=== PATIENT | female | born 1990 ===

== ENCOUNTER 2017-09-13 11:58 | Observation (INO) | payer OTHER ==
--- NOTE | 2017-09-13 12:15 | ED PDOC ---
HPI:STROKE - Time Time: : - Historian Historian: Patient - Chief Complaint Chief Complaint: Numbness - Onset Date: 09/13/17 Time: 11:30 Onset: Hours (1) - Timing Timing: Improved - Context Context: Walking - Location Locate left: Lower extremity - Severity of pain Maximum severity:: Mild Pain Scale:: 0 Severity Current: Mild Pain Scale:: 0 - Associated Symptoms Associated symptoms:: Headache, other (Hearing decreased right ear) - Relieved by Relieved by:: Nothing - TPA Positive for Contraindication: Yes Reason tPA is not being Administered: Sxs resolving NIHSS Stroke Scale - Date/Time Evaluation Performed When Was NIHSS Performed: Baseline - How Severe is the Stroke Level of Consciousness: 0=Alert LOC to Questions: 0=Both comments correct LOC to commands: 0=Obeys both correctly Best Gaze: 0=Normal Visual: 0=No visual loss Facial: 0=Normal Motor Arm - Left: 0=No drift Motor Arm - Right: 0=No drift Motor Leg - Left: 0=No drift Motor Leg - Right: 0=No drift Limb Ataxia: 0=Absent Sensory: 1=Mild to moderate loss Best Language: 0=No aphasia Dysarthia: 0=Normal articulation Extinction & Inattention (Neglect): 0=Normal, no object Score: 1 rTPA Inclusion/Exclusion - Refusal of Treatment Patient Refused Treatment: No - Inclusion Criteria for Altepase Patient is 18 years or Older: Yes The Clinical Diagnosis of Ischemic Stroke That is Causing a Potentially Disabling Neurological Deficit: No Time of Onset is Well Established to be Less Than 270 Minute Before Treatment Would Begin: Yes Risk/Benefit Discussed With Patient/Family Member Present: No Past Medical History Vital Signs: Last Vital Signs Temp 98.9 F 09/13/17 12:07 Pulse 115 H 09/13/17 12:07 Resp 18 09/13/17 12:07 BP 123/82 09/13/17 12:07 Pulse Ox 100 09/13/17 12:07 - Medical History PMH: No Chronic Diseases - Family History Family History: States: Unknown Family Hx - Home Medications Home Medications: Ambulatory Orders Medication Instructions Recorded Multivitamin [Multivitamins] 1 tab PO DAILY 09/13/17 - Allergies Allergies/Adverse Reactions: Allergies Allergy/AdvReac Type Severity Reaction Status Date / Time No Known Allergies Allergy Verified 09/13/17 12:09 Review of Systems ROS Statement: Except As Marked, All Systems Reviewed And Found Negative Neurological: Positive for: Numbness Physical Exam - Reviewed Nursing Documentation Reviewed: Yes Vital Signs Reviewed: Yes - Physical Exam Appears: Positive for: Non-toxic, No Acute Distress Head Exam: Positive for: ATRAUMATIC, NORMAL INSPECTION, NORMOCEPHALIC Skin: Positive for: Normal Color, Warm, DRY Eye Exam: Positive for: EOMI, Normal appearance, PERRL ENT: Positive for: Normal ENT Inspection Neck: Positive for: Normal, Painless ROM Cardiovascular/Chest: Positive for: Regular Rate, Rhythm Respiratory: Positive for: CNT, Normal Breath Sounds Gastrointestinal/Abdominal: Positive for: Normal Exam, Soft Back: Positive for: Normal Inspection Extremity: Positive for: Normal ROM Neurologic/Psych: Positive for: Alert, Oriented, Motor/Sensory Deficits (Mild decrease sensation left upper and lower ext) - Laboratory Results Result Diagrams: 09/13/17 12:20 09/13/17 12:20 - ECG O2 Sat by Pulse Oximetry: 100 (RA) Pulse Ox Interpretation: Normal Medical Decision Making Medical Decision Making: Time: 1211 Plan: -- Type and Screen -- Head CT w/o contrast (CODE STROKE) -- EKG -- CMP -- Hemoglobin -- Lipid Panel -- Troponin -- Stroke Team Consult -- CBC with differentials -- PTT -- Prothrombin Time -- Chest Portable XR -- Glucose, POC -- Sodium Chloride IV 1000 mls/hr Time: [address] w.o contrast Results FINDINGS: HEMORRHAGE: No intracranial hemorrhage. BRAIN: No mass effect or edema. No atrophy or chronic microvascular ischemic changes. VENTRICLES: Unremarkable. No hydrocephalus. CALVARIUM: Unremarkable. PARANASAL SINUSES: Unremarkable as visualized. No significant inflammatory changes. MASTOID AIR CELLS: Unremarkable as visualized. No inflammatory changes. OTHER FINDINGS: None. IMPRESSION: Normal CT of the Head. No intracranial mass, hemorrhage or evidence of acute infarct. These findings were discussed by telephone with Dr. Hinojosa at 12:23 p.m. on 09/13. Scribe Attestation: Documented by Herman Adames, acting as a scribe for Dr. Jann Hinojosa. Provider Scribe Attestation: All medical record entries made by the Scribe were at my direction and personally dictated by me. I have reviewed the chart and agree that the record accurately reflects my personal performance of the history, physical exam, medical decision making, and the department course for this patient. I have also personally directed, reviewed, and agree with the discharge instructions and disposition. Disposition - Clinical Impression Clinical Impression: TIA (transient ischemic attack) - Patient ED Disposition Is Patient to be Admitted: Yes - Disposition Disposition Time: 14:12 Condition: FAIR Forms: Atonarp (Polish) - Pt Status Changed To: Hospital Disposition Of: Observation - POA Present On Arrival: None
--- NOTE | 2017-09-13 12:24 | CT ---
PROCEDURE: CT HEAD WITHOUT CONTRAST. HISTORY: code stroke COMPARISON: None available. TECHNIQUE: Axial computed tomography images were obtained through the head/brain without intravenous contrast. Radiation dose: Total exam DLP = 744.74 mGy-cm. This CT exam was performed using one or more of the following dose reduction techniques: Automated exposure control, adjustment of the mA and/or kV according to patient size, and/or use of iterative reconstruction technique. FINDINGS: HEMORRHAGE: No intracranial hemorrhage. BRAIN: No mass effect or edema. No atrophy or chronic microvascular ischemic changes. VENTRICLES: Unremarkable. No hydrocephalus. CALVARIUM: Unremarkable. PARANASAL SINUSES: Unremarkable as visualized. No significant inflammatory changes. MASTOID AIR CELLS: Unremarkable as visualized. No inflammatory changes. OTHER FINDINGS: None. IMPRESSION: Normal CT of the Head. No intracranial mass, hemorrhage or evidence of acute infarct. These findings were discussed by telephone with Dr. Hinojosa at 12:23 p.m. on 09/13/2017.
[2017-09-13] MEDS: Sodium Chloride 0.9% 1,000 ML IV SCH (12:26)
[2017-09-13 12:27] LABS: BASO % 0.2 % (0.0-2.0); HEMOGLOBIN 10.2 g/dL (12.0-16.0); LYMPH % 7.6 % (20.0-40.0); MEAN CELL VOLUME 75.9 fl (81.0-99.0); MEAN CORPUSCULAR HEMOGLOBIN 23.5 pg (27.0-31.0); MEAN PLATELET VOLUME 8.7 fl (7.2-11.7); MONO # 0.6 K/uL (0.0-0.8); NEUT % 87.2 % (50.0-75.0); PLATELET COUNT 284 K/uL (130-400); RBC 4.34 Mil/uL (3.80-5.20); RED CELL DISTRIBUTION WIDTH 18.9 % (11.5-14.5); WHITE BLOOD COUNT 12.6 K/uL (4.8-10.8)
[2017-09-13 12:37] LABS: ALB/GLOB RATIO 1.1 (1.0-2.1); ALBUMIN 4.3 g/dL (3.5-5.0); ALT/SGPT 33 U/L (9-52); AST/SGOT 30 U/L (14-36); BLOOD UREA NITROGEN 12 mg/dl (7-17); GFR AFRICAN-AMERICAN > 60; GFR NON-AFRICAN AMERICAN > 60; HDL CHOLESTEROL 47 MG/DL (30-70)
[2017-09-13 12:48] LABS: LDL CHOLESTEROL 93 mg/dL (0-129)
[2017-09-13 12:59] LABS: INR 1.2 (0.9-1.2); PARTIAL THROMBOPLASTIN TIME 33.5 Seconds (25.6-37.1); PROTHROMBIN TIME 13.7 Seconds (9.8-13.1)
--- NOTE | 2017-09-13 13:08 | CP.PCM.CON ---
History of Present Illness - History of Present Illness History of Present Illness: Ms. Mena is a 26-year-old woman with no significant past medical history, who states that last night, she had a fever and felt ill. This morning, she woke up feeling okay, but around 11:45 AM, or so, she developed strange sensation of numbness/tingling that started to go up her left leg, traveled up her left side of the body, then crossed over to her right arm. She ordered an Uber to go to the doctor, but then noticed that her face started to feel numb and felt that she had decreased hearing loss. As a result, she presented to the ED. She was initially evaluated in the ED and was found to have no objective findings. She continued to complain of left arm/leg numbness and right face numbness. CT scan of the head was normal. Vital signs were completely normal. NIHSS was 1. She was not a good candidate for IV tPA due to minimal symptoms that were inconsistent with a stroke distribution. Review of Systems - Review of Systems All systems: reviewed and no additional remarkable complaints except Past Patient History - Past Social History Smoking Status: Never Smoked - HEENT Other/Comment: TMJ - PSYCHIATRIC Hx Substance Use: No - SURGICAL HISTORY Hx Surgeries: Yes Hx Section: Yes Meds Allergies/Adverse Reactions: Allergies Allergy/AdvReac Type Severity Reaction Status Date / Time No Known Allergies Allergy Verified 09/13/17 12:09 - Medications Medications: Current Medications Sodium Chloride (Sodium Chloride 0.9%) 1,000 mls @ 100 mls/hr IV .Q10H KATIE Last Admin: 09/13/17 12:26 Dose: 100 mls/hr Physical Exam - Constitutional Appears: Well - Head Exam Head Exam: ATRAUMATIC, NORMAL INSPECTION, NORMOCEPHALIC - Eye Exam Eye Exam: EOMI, Normal appearance, PERRL - ENT Exam ENT Exam: Mucous Membranes Moist, Normal Exam - Respiratory Exam Respiratory Exam: Clear to Auscultation Bilateral, NORMAL BREATHING PATTERN - Cardiovascular Exam Cardiovascular Exam: REGULAR RHYTHM - GI/Abdominal Exam GI & Abdominal Exam: Normal Bowel Sounds, Soft. absent: Tenderness - Neurological Exam Neurological exam: Alert, CN II-XII Intact, Normal Gait, Oriented x3, Reflexes Normal Additional comments: Sensation relatively less on the left than the right arm and leg. Sensation relatively less on the right face as compared to the left side. Otherwise, no other focal neurological deficits. Speech is clear, not dysarthric, not aphasic. Strength and fine motor movements are normal. There was no pronator drift. NIHSS is 1 Results - Vital Signs Recent Vital Signs: Last Vital Signs Temp 98.9 F 09/13/17 12:07 Pulse 98 H 09/13/17 12:25 Resp 16 09/13/17 12:25 BP 110/72 09/13/17 12:25 Pulse Ox 100 09/13/17 12:25 - Labs Result Diagrams: 09/13/17 12:20 09/13/17 12:20 Labs: Laboratory Results - last 24 hr 09/13/17 09/13/17 09/13/17 12:07 12:20 12:20 WBC 12.6 H RBC 4.34 Hgb 10.2 L Hct 33.0 L MCV 75.9 L MCH 23.5 L MCHC 31.0 L RDW 18.9 H Plt Count 284 MPV 8.7 Neut % (Auto) 87.2 H Lymph % (Auto) 7.6 L [place] % (Auto) 5.0 Eos % (Auto) 0.0 Baso % (Auto) 0.2 Neut # (Auto) 11.0 H Lymph # (Auto) 1.0 [place] # (Auto) 0.6 Eos # (Auto) 0.0 Baso # (Auto) 0.0 PT INR APTT Sodium 142 Potassium 3.3 L Chloride 105 Carbon Dioxide 18 L Anion Gap 22 H BUN 12 Creatinine 0.6 L Est GFR ( Amer) > 60 Est GFR (Non-Af Amer) > 60 POC Glucose (mg/dL) 124 H Random Glucose 130 H Calcium 9.0 Total Bilirubin 0.6 AST 30 ALT 33 Alkaline Phosphatase 83 Troponin I < 0.0120 Total Protein 8.2 Albumin 4.3 Globulin 3.8 Albumin/Globulin Ratio 1.1 Triglycerides 71 Cholesterol 163 LDL Cholesterol Direct 93 HDL Cholesterol 47 BBK History Checked 09/13/17 09/13/17 12:20 12:20 WBC RBC Hgb Hct MCV MCH MCHC RDW Plt Count MPV Neut % (Auto) Lymph % (Auto) [place] % (Auto) Eos % (Auto) Baso % (Auto) Neut # (Auto) Lymph # (Auto) [place] # (Auto) Eos # (Auto) Baso # (Auto) PT 13.7 H INR 1.2 APTT 33.5 Sodium Potassium Chloride Carbon Dioxide Anion Gap BUN Creatinine Est GFR ( Amer) Est GFR (Non-Af Amer) POC Glucose (mg/dL) Random Glucose Calcium Total Bilirubin AST ALT Alkaline Phosphatase Troponin I Total Protein Albumin Globulin Albumin/Globulin Ratio Triglycerides Cholesterol LDL Cholesterol Direct HDL Cholesterol BBK History Checked No verified bt Assessment & Plan (1) Complicated migraine Assessment and Plan: The symptoms are inconsistent in description with any stroke syndrome. However , there is a slim chance that the patient is having a stroke. I recommend the followin. Telemetry 2. MRI brain without contrast, MRA head/neck without contrast 3. Give aspirin 81 mg now, as well as decadron 10 mg IV and magnesium sulfate 2 grams IV once. Check test and give 500 mg of depakote as well if not 4. Echocardiogram 5. PT/OT eval 6. DVT Px 7. Case management consult 8. Check HbA1c, lipid panel, B12, folate, vitamin D levels 9. Urine toxicology Thank you. Status: Acute
[2017-09-13 13:14] LABS: ANISOCYTOSIS SLIGHT; BANDS 3 % (0-2); BASOPHIL 1 % (0-2); HYPOCHROMIC SLIGHT; LYMPHOCYTE 7 % (20-50); MONOCYTE 5 % (0-10); NEUTROPHIL 82 % (42-75); PLATELET ESTIMATE NORMAL (NORMAL); REACTIVE LYMPHOCYTES 2 % (0-0); TOTAL CELLS COUNTED 100
[2017-09-13 13:15] LABS: SPHEROCYTES SLIGHT; STOMATOCYTES SLIGHT
[2017-09-13 13:16] LABS: MICROCYTOSIS SLIGHT; POIKILOCYTOSIS SLIGHT
[2017-09-13] MEDS ORDERED: Potassium Chloride 20 mEq ER Tab PO ONE ×2 (13:27→13:34)
[2017-09-13] MEDS ORDERED: Magnesium Sulfate 2 gm/50 ml 2 GM/50 ML BAG IVPB STA (13:31)
[2017-09-13] MEDS ORDERED: Dexamethasone 10 MG in Sodium Chloride 0.9% 50 ML IVPB STA (13:31)
[2017-09-13] MEDS ORDERED: Divalproex 500 mg DR(BID formulation) PO STA (13:33)
[2017-09-13] MEDS ORDERED: Magnesium Sulfate 2 gm/50 ml 2 GM/50 ML BAG ONE (13:36)
--- NOTE | 2017-09-13 14:26 | CP.PCM.HP ---
History of Present Illness - History of Present Illness History of Present Illness: 26 y/o female with no PMH presented to ER complaining of bilateral leg and arm numbness and tingling . As per patient yesterday she had a busy day and in the evening was feeling tired , had sore throat ,felt shiverish and had a temperature. This morning again she did not feel well, had some left foot and ankle numbness like a charley horse , so decided to take 3 tablets of exedrin at her boyfriends advice. After she took exedrin felt somewhat better but later she felt this numbness to travel from her left ankle to all her left leg and left arm . She decied to look up her symptoms in the internet if she needed to come to hospital and that is when her numbness jumped to her right leg and right arm as well, right side of her face and chest. She came to ER where code stroke was called . CT head showed no acute pathology . Neurology eval was called . Her initial NIHSS score was 1. Given that her symptoms were not really related to stroke she was not considered to be a good candidate for tPA. patient to be placed under observation in telemetry for further evaluation and treatment. at present she feels much better , has minimal numbness to the palm of her left hand and left ankle and foot She denies any chest pain ,SOB , palpitations, PND, orthopnea, urinary symptoms or changes in bowel movements. Allergies; NKDA PMH: None Medications took 2 tablets of Exedrin this Am @ 7 Am, takes MVI Surgery : c- section , temporo-mandibular joint surgery Family history :grandmother had DM, mother has hypothyroidism Social history ; Lives with mother and her 3 year old son in [place], stay at home mom, does not smoke,does not drink and does not use any drugs, single Code status ; Full Next of kin ; mother ROS ; 10 point review of system negative except above Present on Admission - Present on Admission Any Indicators Present on Admission: No Review of Systems - Review of Systems All systems: reviewed and no additional remarkable complaints except Past Patient History - Infectious Disease Hx of Infectious Diseases: None - Tetanus Immunizations Tetanus Immunization: Unknown - Past Medical History & Family History Past Medical History?: No Past Family History: Reviewed and not pertinent - Past Social History Smoking Status: Never Smoked Chewing Tobacco Use: No Cigar Use: No Alcohol: None Drugs: Denies Home Situation {Lives}: With Family - CARDIAC Hx Cardiac Disorders: No - PULMONARY Hx Respiratory Disorders: No - NEUROLOGICAL Hx Neurological Disorder: No - HEENT Hx HEENT Problems: No Other/Comment: TMJ - RENAL Hx Chronic Kidney Disease: No - ENDOCRINE/METABOLIC Hx Endocrine Disorders: No - HEMATOLOGICAL/ONCOLOGICAL Hx Blood Disorders: No - INTEGUMENTARY Hx Dermatological Problems: No - MUSCULOSKELETAL/RHEUMATOLOGICAL Hx Musculoskeletal Disorders: No - GASTROINTESTINAL Hx Gastrointestinal Disorders: No - GENITOURINARY/GYNECOLOGICAL Hx Genitourinary Disorders: No - PSYCHIATRIC Hx Psychophysiologic Disorder: No Hx Substance Use: No - SURGICAL HISTORY Hx Surgeries: Yes Hx Section: Yes - ANESTHESIA Hx Anesthesia: Yes Hx Anesthesia Reactions: No Meds Allergies/Adverse Reactions: Allergies Allergy/AdvReac Type Severity Reaction Status Date / Time No Known Allergies Allergy Verified 09/13/17 12:09 Physical Exam - Constitutional Appears: Non-toxic, No Acute Distress - Head Exam Head Exam: ATRAUMATIC, NORMAL INSPECTION, NORMOCEPHALIC - Eye Exam Eye Exam: EOMI, Normal appearance, PERRL Pupil Exam: NORMAL ACCOMODATION - ENT Exam ENT Exam: Mucous Membranes Moist, Normal Exam - Neck Exam Neck exam: Positive for: Full Rom, Normal Inspection - Respiratory Exam Respiratory Exam: Clear to Auscultation Bilateral, NORMAL BREATHING PATTERN. absent: Rales, Rhonchi, Wheezes - Cardiovascular Exam Cardiovascular Exam: REGULAR RHYTHM, RRR, +S1, +S2. absent: JVD - GI/Abdominal Exam GI & Abdominal Exam: Normal Bowel Sounds, Soft. absent: Distended, Guarding, Rebound, Tenderness - Rectal Exam Rectal Exam: Deferred - Extremities Exam Extremities exam: Positive for: normal capillary refill, normal inspection, pedal pulses present. Negative for: calf tenderness, pedal edema - Back Exam Back exam: NORMAL INSPECTION - Neurological Exam Neurological exam: Alert, CN II-XII Intact, Oriented x3, Reflexes Normal - Psychiatric Exam Psychiatric exam: Normal Affect, Normal Mood - Skin Skin Exam: Dry, Intact, Normal Color, Warm Results - Vital Signs Recent Vital Signs: Last Vital Signs Temp 98.9 F 09/13/17 12:07 Pulse 98 H 09/13/17 12:25 Resp 16 09/13/17 12:25 BP 110/72 09/13/17 12:25 Pulse Ox 100 09/13/17 14:13 - Labs Result Diagrams: 09/13/17 12:20 09/13/17 12:20 Labs: Laboratory Results - last 24 hr 09/13/17 09/13/17 09/13/17 12:07 12:20 12:20 WBC 12.6 H RBC 4.34 Hgb 10.2 L Hct 33.0 L MCV 75.9 L MCH 23.5 L MCHC 31.0 L RDW 18.9 H Plt Count 284 MPV 8.7 Neut % (Auto) 87.2 H Lymph % (Auto) 7.6 L [place] % (Auto) 5.0 Eos % (Auto) 0.0 Baso % (Auto) 0.2 Neut # (Auto) 11.0 H Lymph # (Auto) 1.0 [place] # (Auto) 0.6 Eos # (Auto) 0.0 Baso # (Auto) 0.0 Neutrophils % (Manual) 82 H Band Neutrophils % 3 H Lymphocytes % (Manual) 7 L Reactive Lymphs % 2 H Monocytes % (Manual) 5 Basophils % (Manual) 1 Platelet Estimate Normal Hypochromasia (manual) Slight Poikilocytosis (manual Slight Anisocytosis (manual) Slight Microcytosis (manual) Slight Spherocytes Slight Stomatocytes Slight PT INR APTT Sodium 142 Potassium 3.3 L Chloride 105 Carbon Dioxide 18 L Anion Gap 22 H BUN 12 Creatinine 0.6 L Est GFR ( Amer) > 60 Est GFR (Non-Af Amer) > 60 POC Glucose (mg/dL) 124 H Random Glucose 130 H Calcium 9.0 Total Bilirubin 0.6 AST 30 ALT 33 Alkaline Phosphatase 83 Troponin I < 0.0120 Total Protein 8.2 Albumin 4.3 Globulin 3.8 Albumin/Globulin Ratio 1.1 Triglycerides 71 Cholesterol 163 LDL Cholesterol Direct 93 HDL Cholesterol 47 Blood Type Antibody Screen BBK History Checked 09/13/17 09/13/17 12:20 12:20 WBC RBC Hgb Hct MCV MCH MCHC RDW Plt Count MPV Neut % (Auto) Lymph % (Auto) [place] % (Auto) Eos % (Auto) Baso % (Auto) Neut # (Auto) Lymph # (Auto) [place] # (Auto) Eos # (Auto) Baso # (Auto) Neutrophils % (Manual) Band Neutrophils % Lymphocytes % (Manual) Reactive Lymphs % Monocytes % (Manual) Basophils % (Manual) Platelet Estimate Hypochromasia (manual) Poikilocytosis (manual Anisocytosis (manual) Microcytosis (manual) Spherocytes Stomatocytes PT 13.7 H INR 1.2 APTT 33.5 Sodium Potassium Chloride Carbon Dioxide Anion Gap BUN Creatinine Est GFR ( Amer) Est GFR (Non-Af Amer) POC Glucose (mg/dL) Random Glucose Calcium Total Bilirubin AST ALT Alkaline Phosphatase Troponin I Total Protein Albumin Globulin Albumin/Globulin Ratio Triglycerides Cholesterol LDL Cholesterol Direct HDL Cholesterol Blood Type O POSITIVE Antibody Screen Negative BBK History Checked No verified bt Assessment & Plan - Assessment and Plan (Free Text) Assessment: 26 y/o female with no PMH presented to ER complaining of bilateral leg and arm numbness and tingling . As per patient yesterday she had a busy day and in the evening was feeling tired , had sore throat ,felt shiverish and had a temperature. This morning again she did not feel well, had some left foot and ankle numbness like a charley horse , so decided to take 3 tablets of exedrin at her boyfriends advice. After she took exedrin felt somewhat better but later she felt this numbness to travel from her left ankle to all her left leg and left arm . She decided to look up her symptoms in the internet if she needed to come to hospital and that is when her numbness jumped to her right leg and right arm as well, right side of her face and chest. She came to ER where code stroke was called . CT head showed no acute pathology . Neurology eval was called . Her initial NIHSS score was 1. Given that her symptoms were not really related to stroke she was not considered to be a good candidate for tPA. patient to be placed under observation in telemetry for further evaluation and treatment. at present she feels much better , has minimal numbness to the palm of her left hand and left ankle and foot She denies any chest pain ,SOB , palpitations, PND, orthopnea, urinary symptoms or changes in bowel movements. 1.Rule out Stroke less likely given her presentation most likely panic attack ? Neurology consulted Ct head showed no acute pathology Neuro checks, tele monitor Echo, lipid profile, TSH , [id number] MRI of the head w/o contrast MRA head and neck As per neuro give: Magnesium Sulfate, Depakote,ASA and decadron check drug screen 2. DVt prophylaxis SCD lovenox
--- NOTE | 2017-09-13 14:39 | RAD ---
HISTORY: Code Stroke COMPARISON: No prior. FINDINGS: LUNGS: No active pulmonary disease. PLEURA: No significant pleural effusion identified, no pneumothorax apparent. CARDIOVASCULAR: Normal. OSSEOUS STRUCTURES: No significant abnormalities. VISUALIZED UPPER ABDOMEN: Normal. OTHER FINDINGS: None. IMPRESSION: No active disease.
--- NOTE | 2017-09-13 15:44 | MRI ---
PROCEDURE: MRI BRAIN WITHOUT CONTRAST HISTORY: CVA COMPARISON: Unenhanced head CT 09/13/2017. TECHNIQUE: Multiplanar, multisequence MR images of the brain were obtained without intravenous contrast enhancement. FINDINGS: Motion artifact degrades several sequences. HEMORRHAGE: None DWI: No evidence of an acute or early subacute infarction. BRAIN PARENCHYMA: Intrinsic signal throughout the [place] and white matter structures above below the tentorium includes appears within normal limits including the brainstem. There is no mass effect, parenchymal edema or loss of the corticomedullary differentiation. Midline brain anatomy appears within normal limits including the corpus callosum, brainstem and craniocervical junction. There is no suspicious extra-axial fluid collection identified. VENTRICLES: Unremarkable. No hydrocephalus. CRANIUM: Unremarkable. ORBITS: Grossly unremarkable. PARANASAL SINUSES/MASTOIDS: Clear VASCULAR SYSTEM: Skull base flow voids intact. OTHER FINDINGS: None. IMPRESSION: No definite acute intracranial findings including brain infarction and gross hemorrhage. No mass effect. Motion artifact degrades several sequences. No significant changes appreciated compared to prior unremarkable unenhanced head CT 09/13/2017 earlier today.
[2017-09-14 00:10] VITALS: RESP 18
[2017-09-14 04:56] VITALS: O2SAT 99
[2017-09-14 08:41] LABS: BASO % 0.1 % (0.0-2.0); HEMOGLOBIN 8.7 g/dL (12.0-16.0); LYMPH # 0.8 K/uL (1.0-4.3); LYMPH % 6.9 % (20.0-40.0); MEAN CELL VOLUME 77.7 fl (81.0-99.0); MEAN CORPUSCULAR HGB CONC 30.9 g/dL (33.0-37.0); MEAN PLATELET VOLUME 9.3 fl (7.2-11.7); MONO # 0.8 K/uL (0.0-0.8); MONO % 7.3 % (0.0-10.0); NEUT % 85.7 % (50.0-75.0); RBC 3.63 Mil/uL (3.80-5.20); WHITE BLOOD COUNT 11.6 K/uL (4.8-10.8)
--- NOTE | 2017-09-14 08:43 | CARD ---
APPROVED REPORT EKG Measurement Heart [id number] <Conclusion> Normal sinus rhythm Normal ECG
[2017-09-14] MEDS ORDERED: Enoxaparin 40 mg Syringe SC SCH (09:00)
[2017-09-14] MEDS ORDERED: Pantoprazole 40 mg EC Tab PO SCH (09:00)
[2017-09-14 09:28] LABS: ALBUMIN 3.6 g/dL (3.5-5.0); ALT/SGPT 31 U/L (9-52); AST/SGOT 28 U/L (14-36); BLOOD UREA NITROGEN 9 mg/dl (7-17); CALCIUM 8.5 mg/dL (8.4-10.2); GFR AFRICAN-AMERICAN > 60; GFR NON-AFRICAN AMERICAN > 60; HDL CHOLESTEROL 41 MG/DL (30-70); LDL CHOLESTEROL 73 mg/dL (0-129)
[2017-09-14] MEDS: Sodium Chloride 0.9% 1,000 ML IV SCH ×2 (10:11)
[2017-09-14 10:53] LABS: SQUAMOUS EPITHIAL 1 /hpf (0-5); URINE BACTERIA RARE (<OCC); URINE BILIRUBIN NEGATIVE (NEGATIVE); URINE BLOOD NEGATIVE (NEGATIVE); URINE CLARITY SLIGHTY-CLOUDY (Clear); URINE COLOR YELLOW (YELLOW); URINE GLUCOSE (UA) >=500 mg/dL (Normal); URINE LEUKOCYTE ESTERASE NEG Leu/uL (Negative); URINE PROTEIN NEGATIVE (NEGATIVE); URINE UROBILINOGEN 0.2-1.0 mg/dL (0.2-1.0)
--- NOTE | 2017-09-14 11:25 | CP.PCM.DIS ---
Provider - Provider Date of Admission: 09/13/17 14:11 Attending physician: Lisa Munoz MD Primary care physician: none Consults: neurology consult Time Spent in preparation of Discharge (in minutes): 20 Hospital Course - Lab Results Lab Results: Most Recent Lab Values WBC 11.6 K/uL (4.8-10.8) H 09/14/17 05:45 RBC 3.63 Mil/uL (3.80-5.20) L 09/14/17 05:45 Hgb 8.7 g/dL (12.0-16.0) L 09/14/17 05:45 Hct 28.2 % (34.0-47.0) L 09/14/17 05:45 MCV 77.7 fl (81.0-99.0) L 09/14/17 05:45 MCH 24.0 pg (27.0-31.0) L 09/14/17 05:45 MCHC 30.9 g/dL (33.0-37.0) L 09/14/17 05:45 RDW 19.0 % (11.5-14.5) H 09/14/17 05:45 Plt Count 266 K/uL (130-400) 09/14/17 05:45 MPV 9.3 fl (7.2-11.7) 09/14/17 05:45 Neut % (Auto) 85.7 % (50.0-75.0) H 09/14/17 05:45 Lymph % (Auto) 6.9 % (20.0-40.0) L 09/14/17 05:45 Sheridan % (Auto) 7.3 % (0.0-10.0) 09/14/17 05:45 Eos % (Auto) 0.0 % (0.0-4.0) 09/14/17 05:45 Baso % (Auto) 0.1 % (0.0-2.0) 09/14/17 05:45 Neut # (Auto) 10.0 K/uL (1.8-7.0) H 09/14/17 05:45 Lymph # (Auto) 0.8 K/uL (1.0-4.3) L 09/14/17 05:45 Sheridan # (Auto) 0.8 K/uL (0.0-0.8) 09/14/17 05:45 Eos # (Auto) 0.0 K/uL (0.0-0.7) 09/14/17 05:45 Baso # (Auto) 0.0 K/uL (0.0-0.2) 09/14/17 05:45 Neutrophils % (Manual) 82 % (42-75) H 09/13/17 12:20 Band Neutrophils % 3 % (0-2) H 09/13/17 12:20 Lymphocytes % (Manual) 7 % (20-50) L 09/13/17 12:20 Reactive Lymphs % 2 % (0-0) H 09/13/17 12:20 Monocytes % (Manual) 5 % (0-10) 09/13/17 12:20 Basophils % (Manual) 1 % (0-2) 09/13/17 12:20 Platelet Estimate Normal (NORMAL) 09/13/17 12:20 Hypochromasia (manual) Slight 09/13/17 12:20 Poikilocytosis (manual Slight 09/13/17 12:20 Anisocytosis (manual) Slight 09/13/17 12:20 Microcytosis (manual) Slight 09/13/17 12:20 Spherocytes Slight 09/13/17 12:20 Stomatocytes Slight 09/13/17 12:20 PT 13.7 Seconds (9.8-13.1) H 09/13/17 12:20 INR 1.2 (0.9-1.2) 09/13/17 12:20 APTT 33.5 Seconds (25.6-37.1) 09/13/17 12:20 Sodium 142 mmol/l (132-148) 09/14/17 05:45 Potassium 3.8 MMOL/L (3.6-5.0) 09/14/17 05:45 Chloride 110 mmol/L (98-107) H 09/14/17 05:45 Carbon Dioxide 17 mmol/L (22-30) L 09/14/17 05:45 Anion Gap 19 (10-20) 09/14/17 05:45 BUN 9 mg/dl (7-17) 09/14/17 05:45 Creatinine 0.6 mg/dl (0.7-1.2) L 09/14/17 05:45 Est GFR ( Amer) > 60 09/14/17 05:45 Est GFR (Non-Af Amer) > 60 09/14/17 05:45 POC Glucose (mg/dL) 124 mg/dL (65-110) H 09/13/17 12:07 Random Glucose 147 mg/dL (65-105) H 09/14/17 05:45 Hemoglobin A1c 5.4 % (4.2-6.5) 09/13/17 12:20 Calcium 8.5 mg/dL (8.4-10.2) 09/14/17 05:45 Total Bilirubin 0.3 mg/dl (0.2-1.3) 09/14/17 05:45 AST 28 U/L (14-36) 09/14/17 05:45 ALT 31 U/L (9-52) 09/14/17 05:45 Alkaline Phosphatase 66 U/L (38-126) 09/14/17 05:45 Troponin I < 0.0120 ng/mL (0.00-0.120) 09/13/17 12:20 Total Protein 7.0 G/DL (6.3-8.2) 09/14/17 05:45 Albumin 3.6 g/dL (3.5-5.0) 09/14/17 05:45 Globulin 3.4 gm/dL (2.2-3.9) 09/14/17 05:45 Albumin/Globulin Ratio 1.0 (1.0-2.1) 09/14/17 05:45 Triglycerides 81 mg/DL (0-149) 09/14/17 05:45 Cholesterol 135 mg/dL (0-199) 09/14/17 05:45 LDL Cholesterol Direct 73 mg/dL (0-129) 09/14/17 05:45 HDL Cholesterol 41 MG/DL (30-70) 09/14/17 05:45 Vitamin B12 689 pg/mL (239-931) 09/14/17 05:45 TSH 3rd Generation 0.40 mIU/ML (0.46-4.68) L 09/14/17 05:45 Urine Color Yellow (YELLOW) 09/13/17 10:30 Urine Clarity Slighty-cloudy (Clear) 09/13/17 10:30 Urine pH 6.0 (5.0-8.0) 09/13/17 10:30 Ur Specific Pickford 1.016 (1.003-1.030) 09/13/17 10:30 Urine Protein Negative mg/dL (NEGATIVE) 09/13/17 10:30 Urine Glucose (UA) >=500 mg/dL (Normal) 09/13/17 10:30 Urine Ketones Trace mg/dL (NEGATIVE) 09/13/17 10:30 Urine Blood Negative (NEGATIVE) 09/13/17 10:30 Urine Nitrate Negative (NEGATIVE) 09/13/17 10:30 Urine Bilirubin Negative (NEGATIVE) 09/13/17 10:30 Urine Urobilinogen 0.2-1.0 mg/dL (0.2-1.0) 09/13/17 10:30 Ur Leukocyte Esterase Neg Priya/uL (Negative) 09/13/17 10:30 Urine RBC (Auto) 2 /hpf (0-3) 09/13/17 10:30 Urine Microscopic WBC 1 /hpf (0-5) 09/13/17 10:30 Ur Squamous Epith Cells 1 /hpf (0-5) 09/13/17 10:30 Urine Bacteria Rare (<OCC) 09/13/17 10:30 Blood Type O POSITIVE 09/13/17 12:20 Antibody Screen Negative 09/13/17 12:20 BBK History Checked No verified bt 09/13/17 12:20 - Hospital Course Hospital Course: 26 y/o female with no PMH presented to ER complaining of bilateral leg and arm numbness and tingling . As per patient yesterday she had a busy day and in the evening was feeling tired , had sore throat ,felt shiverish and had a temperature. This morning again she did not feel well, had some left foot and ankle numbness like a charley horse , so decided to take 3 tablets of exedrin at her boyfriend's advice. After she took exedrin felt somewhat better but later she felt this numbness to travel from her left ankle up to all her left leg and left arm . She decided to look up her symptoms in the internet if she needed to come to hospital and that is when her numbness jumped to her right leg and right arm as well, right side of her face and chest. She came to ER where code stroke was called . CT head showed no acute pathology . Neurology eval was called . Her initial NIHSS score was 1. Given that her symptoms were not consistent with stroke she was not considered to be a good candidate for tPA. patient placed under observation in telemetry for further evaluation and treatment. Neurology evaluated patient and thought that her symptoms are less likely related to stroke MRI head showed no acute pathology Tele monitor showed no arrythmias All here symptoms resolved. Unlikely TIA . Stroke was ruled out Bilateral Paresthesias of unclear etiology at this time ( possible side effect of exedrin or panic/ anxiety attack ) Anemia - no signs of bleeding . Follow up with [facility] qas outpatient Mild leukocytosis- afebrile, no urinary Sx no respiratory symptoms. Possible reactive hypokalemia-- replaced At present Hemodynamically stable, afebrile Will discharge patient home Follow up with [facility] / and or neurology as out patient Discharge Exam - Head Exam Head Exam: ATRAUMATIC, NORMAL INSPECTION, NORMOCEPHALIC - Eye Exam Eye Exam: EOMI, Normal appearance, PERRL Pupil Exam: NORMAL ACCOMODATION - ENT Exam ENT Exam: Mucous Membranes Moist, Normal Exam - Neck Exam Neck exam: Full Rom, Normal Inspection - Respiratory Exam Respiratory Exam: Clear to PA & Lateral, NORMAL BREATHING PATTERN. absent: Rales, Rhonchi, Wheezes - Cardiovascular Exam Cardiovascular Exam: REGULAR RHYTHM, RRR, +S1, +S2. absent: JVD, Rubs - GI/Abdominal Exam GI & Abdominal Exam: Normal Bowel Sounds, Soft. absent: Distended, Guarding, Rebound, Tenderness - Rectal Exam Rectal Exam: Deferred - Extremities Exam Extremities exam: normal capillary refill, normal inspection, pedal pulses present - Back Exam Back exam: NORMAL INSPECTION - Neurological Exam Neurological exam: Alert, CN II-XII Intact, Oriented x3, Reflexes Normal - Psychiatric Exam Psychiatric exam: Normal Affect, Normal Mood - Skin Skin Exam: Dry, Intact, Normal Color, Warm Discharge Plan - Follow Up Plan Condition: STABLE Disposition: HOME/ ROUTINE Patient education suggested?: Yes Instructions: Paresthesias (DC) Referrals: [facility] [Outside]
[2017-09-14 12:20] VITALS: BP 101/65; PULSE 84; TEMP 98.3
--- NOTE | 2017-09-15 09:23 | CARD ---
APPROVED REPORT EXAM: Two-dimensional and M-mode echocardiogram with Doppler and color Doppler. Other Information Quality : Good[employer] : INDICATION 2D DIMENSIONS IVSd0.89 (0.7-1.1cm)LVDd3.92 (3.9-5.9cm) PWd1.01 (0.7-1.1cm)IVSs1.27 (0.8-1.2cm) LVDs2.65 (2.5-4.0cm)FS (%) 32.4 % PWs1.25 (0.8-1.2cm) M-Mode DIMENSIONS Left Atrium (MM)3.76 (2.5-4.0cm)IVSd0.96 (0.7-1.1cm) Aortic Root2.27 (2.2-3.7cm)LVDd4.20 (4.0-5.6cm) Aortic Cusp Exc.1.59 (1.5-2.0cm)PWd1.00 (0.7-1.1cm) IVSs1.28 cmFS (%) 45 % LVDs2.30 (2.0-3.8cm)PWs1.43 cm Mitral Valve MV E Izebidjj99.8cm/sMV DECEL [id number] A Rkindizn13.4cm/s MV KBW12wtT/A ratio1.6MVA (PHT)3.52cm2 TDI Lateral E' Peak V18.82cm/sMedial E' Peak V17.11cm/sE/Lateral E'5.2 E/Medial E'5.8 Pulmonary Valve PV Peak Swhdsrtj137.2cm/s Tricuspid Valve TR Peak Dqneejpl082sw/sTR Peak Gr.17mmHg LEFT VENTRICLE The left ventricle is normal size. There is normal left ventricular wall thickness. Left ventricle systolic function is normal. The Ejection Fraction is 65-70%. There is normal LV segmental wall motion. The left ventricular diastolic function is normal. RIGHT VENTRICLE The right ventricle is normal size. There is normal right ventricular wall thickness. The right ventricular systolic function is normal. ATRIA The left atrium size is normal. The right atrium size is normal. AORTIC VALVE The aortic valve is normal in structure. No aortic regurgitation is present. There is no aortic valvular stenosis. MITRAL VALVE The mitral valve is normal in structure. There is no evidence of mitral valve prolapse. There is no mitral valve stenosis. There is no mitral valve regurgitation noted. TRICUSPID VALVE The tricuspid valve is normal in structure. There is no tricuspid valve regurgitation noted. PULMONIC VALVE The pulmonary valve is normal in structure. There is no pulmonic valvular regurgitation. GREAT VESSELS The aortic root is normal in size. The IVC is normal in size and collapses >50% with inspiration. PERICARDIAL EFFUSION The pericardium appears normal. <Conclusion> There is normal left ventricular wall thickness. There is normal LV segmental wall motion. Left ventricle systolic function is normal. The Ejection Fraction is 65-70%. The left ventricular diastolic function is normal.
--- NOTE | 2017-09-16 10:31 | MRI ---
PROCEDURE: MR Angiography of the neck without contrast HISTORY: TIA COMPARISON: None available. TECHNIQUE: 3D [id number] angiography of the neck was performed. Rotating maximum intensity projection images of the cervical carotid and vertebral arteries were generated. The origins of the common carotid arteries were not visualized, which is a limitation inherent to the non-contrast time of flight technique. FINDINGS: RIGHT CAROTID ARTERIES: Common Carotid Artery: Normal. Carotid Bifurcation: Normal. Internal Carotid Artery:Normal. External Carotid Artery (proximal branches): Normal. LEFT CAROTID ARTERIES: Common Carotid Artery: Normal. Carotid Bifurcation: Normal. Internal Carotid Artery:Normal. External Carotid Artery (proximal branches): Normal. VERTEBRAL ARTERIES: Right Vertebral Artery: Normal. Left Vertebral Artery: Normal variant, hypoplastic distal left segment. OTHER FINDINGS: None. IMPRESSION: Normal MR Angiography of the neck. Concordant preliminary report from [facility], 09/14/2017.
--- NOTE | 2017-09-16 10:32 | MRI ---
PROCEDURE: Magnetic Resonance Angiography Brain HISTORY: TIA COMPARISON: None available. TECHNIQUE: 3D time of flight MR angiography of the intracranial arteries was performed. Rotating maximum intensity projection images were generated. FINDINGS: INTERNAL CAROTID ARTERIES: The skull base, petrous, cavernous and supraclinoid segments are bilaterally widely patient. No significant stenosis identified. ANTERIOR CEREBRAL ARTERIES: Unremarkable. A1 and A2 segments are widely patent. Smaller distal branches unremarkable, as visualized. MIDDLE CEREBRAL ARTERIES: Unremarkable. M1 and M2 segments are widely patent. Perisylvian branches grossly symmetric. POSTERIOR CIRCULATION: Basilar Artery: Unremarkable. Distal Vertebral Arteries: A mildly hypoplastic distal left vertebral artery is identified with the distal right vertebral artery unremarkable. Posterior Cerebral Arteries: Unremarkable. Posterior Inferior Cerebellar Arteries: Unremarkable. ANEURYSM/ VASCULAR MALFORMATIONS: None. OTHER FINDINGS: None. IMPRESSION: Unremarkable MR angiography of the brain. Concordant preliminary report from [facility], 09/14/2017.
== END 2017-09-14 13:30 | disposition home or self-care (01) ==
LOC: H.ER 11:58 → H.ERHOLD 14:11 → H.TEL 16:23
PROVIDERS: ADMIT Hospitalist; ATTEND Hospitalist
DX: F41.0 Panic disorder [episodic paroxysmal anxiety] (principal); R20.2 Paresthesia of skin; E87.6 Hypokalemia; D64.9 Anemia, unspecified; Z83.3 Family history of diabetes mellitus; J02.9 Acute pharyngitis, unspecified; T39.015A Adverse effect of aspirin, initial encounter; Y92.9 Unspecified place or not applicable
CPT/HCPCS: 36415; 70450; 70544; 70547; 70551; 71045; 80053; 80061; 80320; 81003; 81025; 82009; 82306; 82607; 82948; 83036; 84443; 84484; 84600; 85025; 85610; 85730; 86850; 86900; 93005; 93306; 96361; 96365; 96372; 96375; 99285; G0378; J1100; J1650; J7040

== ENCOUNTER 2017-09-15 14:26 | Emergency (ER) | payer OTHER ==
[2017-09-15 14:33] VITALS: TEMP 99.4
--- NOTE | 2017-09-15 14:51 | ED PDOC ---
HPI: Headache Time Seen by Provider: 09/15/17 14:40 Chief Complaint (Nursing): Weakness/Neurological Deficit Chief Complaint (Provider): Headache History Per: Patient History/Exam Limitations: no limitations Onset/Duration Of Symptoms: Days Current Symptoms Are (Timing): Still Present Additional Complaint(s): 26 year old female presents to the emergency department with a complaint of a severe frontal headache that started last night, 09/14/2017. Describes headache as pounding that radiates down to her nose. Associated with left arm, left leg, and right-sided facial numbness (not new; unchanged from previous visit). Patient was admitted on 09/13/2017 for transient ischemic attack (TIA) and discharged on 09/14/2017 for paresthesias. Denies taking medications for headache, fever, and chills. NIHSS Stroke Scale - Date/Time Evaluation Performed Date Performed: 09/15/17 Time Performed: 14:48 When Was NIHSS Performed: Baseline - How Severe is the Stroke Level of Consciousness: 0=Alert LOC to Questions: 0=Both comments correct LOC to commands: 0=Obeys both correctly Best Gaze: 0=Normal Visual: 1=Partial hemianopia Facial: 0=Normal Motor Arm - Left: 0=No drift Motor Arm - Right: 0=No drift Motor Leg - Left: 0=No drift Motor Leg - Right: 0=No drift Limb Ataxia: 0=Absent Sensory: 1=Mild to moderate loss Dysarthia: 0=Normal articulation Extinction & Inattention (Neglect): 0=Normal, no object Past Medical History Reviewed: Historical Data, Nursing Documentation, Vital Signs Vital Signs: Last Vital Signs Temp 99.4 F 09/15/17 14:27 Pulse 104 H 09/15/17 14:27 Resp 16 09/15/17 14:27 BP 112/76 09/15/17 14:27 Pulse Ox 98 09/15/17 14:27 - Medical History PMH: No Chronic Diseases Denies: Chronic Kidney Disease - Family History Family History: States: Unknown Family Hx - Social History Current smoker - smoking cessation education provided: No Alcohol: None Drugs: Denies - Home Medications Home Medications: Ambulatory Orders Medication Instructions Recorded Multivitamin [Multivitamins] 1 tab PO DAILY 09/13/17 Metoclopramide HCl [Reglan] 10 mg PO BID PRN 5 Days tablet 09/15/17 - Allergies Allergies/Adverse Reactions: Allergies Allergy/AdvReac Type Severity Reaction Status Date / Time No Known Allergies Allergy Verified 09/13/17 12:09 Review of Systems ROS Statement: Except As Marked, All Systems Reviewed And Found Negative (As per HPI, otherwise negative) Constitutional: Negative for: Fever, Chills Neurological: Positive for: Numbness (of the left leg, left arm, and right side of the face (not new)), Headache (Severe frontal headache described as pounding) Physical Exam - Reviewed Nursing Documentation Reviewed: Yes Vital Signs Reviewed: Yes - Physical Exam Appears: Positive for: No Acute Distress Head Exam: Positive for: NORMAL INSPECTION Skin: Positive for: Normal Color, Warm, Dry ENT: Positive for: Normal ENT Inspection Cardiovascular/Chest: Positive for: Regular Rate, Rhythm. Negative for: Murmur Respiratory: Positive for: Normal Breath Sounds. Negative for: Accessory Muscle Use, Respiratory Distress Extremity: Positive for: Normal ROM (mild to moderate loss in sensation: unchanged from previous visit). Negative for: Pedal Edema Neurologic/Psych: Positive for: Alert, Oriented (x3) - Laboratory Results Result Diagrams: 09/15/17 14:50 09/15/17 14:50 - ECG O2 Sat by Pulse Oximetry: 98 (RA) Pulse Ox Interpretation: Normal Medical Decision Making Medical Decision Making: Time: 1446 Initial impression: Headache Initial plan: --CMP --Urine Preg --CBC w/ diff --Morphine 2 mg IV --Head CT --Reevaluation Time: 151 --Patient signed out to Dr. Love BALLARD. --Pending Head CT and reassessment. Scribe Attestation: Documented by Claritza Adames, acting as a scribe for Alice Mooney MD Provider Scribe Attestation: All medical record entries made by the Scribe were at my direction and personally dictated by me. I have reviewed the chart and agree that the record accurately reflects my personal performance of the history, physical exam, medical decision making, and the department course for this patient. I have also personally directed, reviewed, and agree with the discharge instructions and disposition. Disposition - Clinical Impression Clinical Impression: Headache - Patient ED Disposition Is Patient to be Admitted: No - Disposition Referrals: [facility] [Outside] - 09/16/17 Adira Perez MD [Medical Doctor] - 09/16/17 Disposition: Transfer of Care Disposition Time: 15:15 Condition: STABLE Additional Instructions: Return if not better in 3 days. Prescriptions: Metoclopramide HCl [Reglan] 10 mg PO BID PRN 5 Days tablet PRN Reason: Pain, Moderate (4-7) Instructions: Headache, Adult (DC) Forms: [employer] (Kyrgyz), [facility] ED School/Work Excuse Patient Signed Over To: Manny Aleman rTPA Inclusion/Exclusion - Refusal of Treatment Patient Refused Treatment: No - Inclusion Criteria for Altepase Patient is 18 years or Older: Yes Clinical DX Ischemic Stroke Cause Neurological Deficit: No Time of Onset Established Less Than 270 Mins Before TX Begin: No Risk/Benefit Discussed With Patient/Family Member Present: No
--- NOTE | 2017-09-15 14:51 | ED PDOC ---
HPI: General Adult Time Seen by Provider: 09/15/17 14:40 Chief Complaint (Nursing): Weakness/Neurological Deficit NIHSS Stroke Scale - How Severe is the Stroke Sensory: 1=Mild to moderate loss (Unchanged from previous visit) Past Medical History Vital Signs: Last Vital Signs Temp 99.4 F 09/15/17 14:27 Pulse 104 H 09/15/17 14:27 Resp 16 09/15/17 14:27 BP 112/76 09/15/17 14:27 Pulse Ox 98 09/15/17 14:27 - Medical History PMH: Denies: Chronic Kidney Disease - Family History Family History: States: Unknown Family Hx - Home Medications Home Medications: Ambulatory Orders Medication Instructions Recorded Multivitamin [Multivitamins] 1 tab PO DAILY 09/13/17 - Allergies Allergies/Adverse Reactions: Allergies Allergy/AdvReac Type Severity Reaction Status Date / Time No Known Allergies Allergy Verified 09/13/17 12:09 Review of Systems ROS Statement: Except As Marked, All Systems Reviewed And Found Negative (As per HPI, otherwise negative) Constitutional: Negative for: Fever, Chills Neurological: Positive for: Numbness (of the left leg, left arm, and right side of the face (not new)), Headache (Severe frontal headache described as pounding) Physical Exam - Reviewed Nursing Documentation Reviewed: Yes Vital Signs Reviewed: Yes - Physical Exam Appears: Positive for: No Acute Distress Head Exam: Positive for: NORMAL INSPECTION Skin: Positive for: Normal Color, Warm, Dry ENT: Positive for: Normal ENT Inspection Cardiovascular/Chest: Positive for: Regular Rate, Rhythm. Negative for: Murmur Respiratory: Positive for: Normal Breath Sounds. Negative for: Accessory Muscle Use, Respiratory Distress Extremity: Positive for: Normal ROM (mild to moderate loss in sensation: unchanged from previous visit). Negative for: Pedal Edema Neurologic/Psych: Positive for: Alert, Oriented (x3) - ECG O2 Sat by Pulse Oximetry: 98 (RA) Pulse Ox Interpretation: Normal Medical Decision Making Medical Decision Making: Time: 1446 Initial impression: Headache Initial plan: --CMP --Urine Preg --CBC w/ diff --Morphine 2 mg IV --Head CT --Reevaluation Scribe Attestation: Documented by Claritza Adames, acting as a scribe for Alice Mooney MD Provider Scribe Attestation: All medical record entries made by the Scribe were at my direction and personally dictated by me. I have reviewed the chart and agree that the record accurately reflects my personal performance of the history, physical exam, medical decision making, and the department course for this patient. I have also personally directed, reviewed, and agree with the discharge instructions and disposition. Disposition - Disposition Forms: [employer] (Bulgarian)
[2017-09-15 15:06] LABS: BASO # 0.1 K/uL (0.0-0.2); BASO % 0.6 % (0.0-2.0); EOS # 0.1 K/uL (0.0-0.7); EOS % 0.9 % (0.0-4.0); LYMPH # 2.1 K/uL (1.0-4.3); LYMPH % 16.8 % (20.0-40.0); MEAN CELL VOLUME 76.5 fl (81.0-99.0); MEAN CORPUSCULAR HEMOGLOBIN 24.3 pg (27.0-31.0); MEAN CORPUSCULAR HGB CONC 31.8 g/dL (33.0-37.0); MEAN PLATELET VOLUME 8.8 fl (7.2-11.7); MONO # 1.2 K/uL (0.0-0.8); MONO % 10.1 % (0.0-10.0); NEUT # 8.8 K/uL (1.8-7.0); NEUT % 71.6 % (50.0-75.0); RBC 4.09 Mil/uL (3.80-5.20); RED CELL DISTRIBUTION WIDTH 19.6 % (11.5-14.5); WHITE BLOOD COUNT 12.3 K/uL (4.8-10.8)
[2017-09-15 15:23] LABS: ALBUMIN 4.3 g/dL (3.5-5.0); ALT/SGPT 39 U/L (9-52); AST/SGOT 37 U/L (14-36); BLOOD UREA NITROGEN 10 mg/dl (7-17); CALCIUM 9.5 mg/dL (8.4-10.2); GFR AFRICAN-AMERICAN > 60; GFR NON-AFRICAN AMERICAN > 60
[2017-09-15] MEDS ORDERED: Morphine 4 MG/ML VIAL IV ONE (16:57)
--- NOTE | 2017-09-15 17:01 | ED PDOC ---
- Laboratory Results Result Diagrams: 09/15/17 14:50 09/15/17 14:50 Interpretation Of Abn Labs: no acute - ECG O2 Sat by Pulse Oximetry: 98 (RA) Pulse Ox Interpretation: Normal - CT Scan/US ct Other Rad Studies (CT/US): Read By Radiologist Other Rad Interpretation: no acute - Progress ED Course And Treament: 1500: Took over care from Dr. Mooney. Fu on imaging. Pt. with headache frontal. Admitted and dc recently for paresthesias. MRI was done then and neuro saw pt. at that visit. 1899: Dr. Perez saw pt. Well known to him. States to give decadron, depacote , and mag. Wants dc and if pt. comfortable. Fu with him in 3 days. 2135: Stable. AAOx3. Pain free. Tolerated PO. Ambulated with no issues. Fu with pcp and neuro. Medical Decision Making Medical Decision Making: Time: 1514 --Patient endorsed from Dr. Mooney to me. --Pending Head CT and reassessment. Time: 1656 --Reglan 10 mg PO --Morphine 4 mg IV Time: 1731 --Head CT FINDINGS: HEMORRHAGE: No intracranial hemorrhage. BRAIN: No mass effect or edema. No atrophy or chronic microvascular ischemic changes. VENTRICLES: Unremarkable. No hydrocephalus. CALVARIUM: Unremarkable. PARANASAL SINUSES: Unremarkable as visualized. No significant inflammatory changes. MASTOID AIR CELLS: Unremarkable as visualized. No inflammatory changes. OTHER FINDINGS: None. IMPRESSION: Normal CT of the Head. Time: 1808 --Valproate 500 mg IVPB --Magnesium Sulfate 2 gm in 50 ml IVPB --Decadron 10 mg IVP Scribe Attestation: Documented by Claritza Adames, acting as a scribe for Manny Aleman MD Provider Scribe Attestation: All medical record entries made by the Scribe were at my direction and personally dictated by me. I have reviewed the chart and agree that the record accurately reflects my personal performance of the history, physical exam, medical decision making, and the department course for this patient. I have also personally directed, reviewed, and agree with the discharge instructions and disposition. Disposition Counseled Patient/Family Regarding: Studies Performed, Diagnosis, Need For Followup, Rx Given - Clinical Impression Clinical Impression: Headache - POA Present On Arrival: None - Disposition Referrals: Adria Perez MD [Medical Doctor] - 09/16/17 [facility] [Outside] - 09/16/17 Disposition: Routine/Home Disposition Time: 21:38 Condition: STABLE Additional Instructions: Return if not better in 3 days. Prescriptions: Metoclopramide HCl [Reglan] 10 mg PO BID PRN 5 Days tablet PRN Reason: Pain, Moderate (4-7) Instructions: Headache, Adult (DC) Forms: [facility] (Romanian), [facility] ED School/Work Excuse
--- NOTE | 2017-09-15 17:33 | CT ---
PROCEDURE: CT HEAD WITHOUT CONTRAST. HISTORY: ADORNO COMPARISON: None available. TECHNIQUE: Axial computed tomography images were obtained through the head/brain without intravenous contrast. Radiation dose: Total exam DLP = mGy-cm. This CT exam was performed using one or more of the following dose reduction techniques: Automated exposure control, adjustment of the mA and/or kV according to patient size, and/or use of iterative reconstruction technique. FINDINGS: HEMORRHAGE: No intracranial hemorrhage. BRAIN: No mass effect or edema. No atrophy or chronic microvascular ischemic changes. VENTRICLES: Unremarkable. No hydrocephalus. CALVARIUM: Unremarkable. PARANASAL SINUSES: Unremarkable as visualized. No significant inflammatory changes. MASTOID AIR CELLS: Unremarkable as visualized. No inflammatory changes. OTHER FINDINGS: None. IMPRESSION: Normal CT of the Head.
[2017-09-15] MEDS ORDERED: Valproate 500 MG in Sodium Chloride 0.9% 100 ML IVPB ONE (18:08)
[2017-09-15] MEDS ORDERED: Magnesium Sulfate 2 gm/50 ml 2 GM/50 ML BAG IVPB ONE (18:09)
--- NOTE | 2017-09-15 19:06 | CP.PCM.CON ---
History of Present Illness - History of Present Illness History of Present Illness: Neurology Consult Note: Ms. Mena is a 26-year-old woman who was recently admitted for strange left side sensation/numbness and worked up as a "code stroke", with all tests being normal , she was discharged. Now she returns with a headache that is severe, associated with nausea, photophobia and, again, left side numbness. CT head was normal. Review of Systems - Review of Systems All systems: reviewed and no additional remarkable complaints except Past Patient History - Infectious Disease Hx of Infectious Diseases: None - Tetanus Immunizations Tetanus Immunization: Unknown - Past Medical History & Family History Past Medical History?: No - Past Social History Alcohol: None Drugs: Denies - CARDIAC Hx Cardiac Disorders: No - PULMONARY Hx Respiratory Disorders: No - NEUROLOGICAL Hx Neurological Disorder: No - HEENT Hx HEENT Problems: No Other/Comment: TMJ - RENAL Hx Chronic Kidney Disease: No - ENDOCRINE/METABOLIC Hx Endocrine Disorders: No - HEMATOLOGICAL/ONCOLOGICAL Hx Blood Disorders: No - INTEGUMENTARY Hx Dermatological Problems: No - MUSCULOSKELETAL/RHEUMATOLOGICAL Hx Musculoskeletal Disorders: No - GASTROINTESTINAL Hx Gastrointestinal Disorders: No - GENITOURINARY/GYNECOLOGICAL Hx Genitourinary Disorders: No - PSYCHIATRIC Hx Psychophysiologic Disorder: No Hx Substance Use: No - SURGICAL HISTORY Hx Surgeries: Yes Hx Section: Yes - ANESTHESIA Hx Anesthesia: Yes Hx Anesthesia Reactions: No Meds Allergies/Adverse Reactions: Allergies Allergy/AdvReac Type Severity Reaction Status Date / Time No Known Allergies Allergy Verified 09/13/17 12:09 - Medications Medications: Current Medications Magnesium Sulfate (Magnesium Sulfate 2 Gm/50 Ml Water) 2 gm in 50 mls @ 50 mls/ hr IVPB ONCE ONE PRN Reason: 2 GM/HR Stop: 09/15/17 19:08 Physical Exam - Neurological Exam Neurological exam: Alert, CN II-XII Intact, Normal Gait, Oriented x3, Reflexes Normal Results - Vital Signs Recent Vital Signs: Last Vital Signs Temp 99.4 F 09/15/17 14:27 Pulse 104 H 09/15/17 14:27 Resp 16 09/15/17 14:27 BP 112/76 09/15/17 14:27 Pulse Ox 98 09/15/17 19:02 - Labs Result Diagrams: 09/15/17 14:50 09/15/17 14:50 Labs: Laboratory Results - last 24 hr 09/15/17 09/15/17 09/15/17 14:44 14:50 14:50 WBC 12.3 H RBC 4.09 Hgb 10.0 L Hct 31.3 L MCV 76.5 L MCH 24.3 L MCHC 31.8 L RDW 19.6 H Plt Count 313 MPV 8.8 Neut % (Auto) 71.6 Lymph % (Auto) 16.8 L [place] % (Auto) 10.1 H Eos % (Auto) 0.9 Baso % (Auto) 0.6 Neut # (Auto) 8.8 H Lymph # (Auto) 2.1 [place] # (Auto) 1.2 H Eos # (Auto) 0.1 Baso # (Auto) 0.1 Sodium 143 Potassium 4.0 Chloride 103 Carbon Dioxide 25 Anion Gap 19 BUN 10 Creatinine 0.6 L Est GFR ( Amer) > 60 Est GFR (Non-Af Amer) > 60 POC Glucose (mg/dL) 95 Random Glucose 95 Calcium 9.5 Total Bilirubin 0.5 AST 37 H D ALT 39 Alkaline Phosphatase 68 Total Protein 8.4 H Albumin 4.3 Globulin 4.1 H Albumin/Globulin Ratio 1.0 Assessment & Plan (1) Complicated migraine Assessment and Plan: Will treat with decadron 10 mg IV, depakote 500 mg IV and magnesium sulfate 2 grams IV and follow for improvement. She should be started on magnesium oxide 400 mg BID for prophylaxis and will follow up with her in the outpatient clinic for management of migraine prophylaxis. Thank you. Status: Acute Priority: High
[2017-09-15 23:50] VITALS: BP 102/56; PULSE 85; RESP 14
[2017-09-16] MEDS ORDERED: Dexamethasone 10 MG in Sodium Chloride 0.9% 50 ML IVPB SCH (09:00)
[2017-09-18 14:28] VITALS: O2SAT 98
== END 2017-09-16 00:18 | disposition home or self-care (01) ==
LOC: H.ER 14:26
DX: R51 Headache (principal); Z86.73 Personal history of transient ischemic attack (TIA), and cerebral infarction without residual deficits
CPT/HCPCS: 70450; 80053; 81025; 82948; 85025; 96365; 96375; 96376; 99285; J1100; J2270; J2405

== ENCOUNTER 2018-04-07 15:00 | Emergency (ER) | payer OTHER ==
[2018-04-07 15:04] VITALS: BP 118/73; PULSE 92; RESP 16; TEMP 98.5; O2SAT 100
[2018-04-07] MEDS ORDERED: Sodium Chloride 0.9% 1,000 ML IV STA (15:29)
--- NOTE | 2018-04-07 15:33 | ED PDOC ---
HPI: General Adult Time Seen by Provider: 04/07/18 15:19 Chief Complaint (Nursing): Weakness/Neurological Deficit Chief Complaint (Provider): generalized malaise and weakness History Per: Patient History/Exam Limitations: no limitations Onset/Duration Of Symptoms: Days Additional Complaint(s): Papito Diggs is a 27 year old female, with no significant past medical history, who presents to the emergency department complaining of generalized malaise and weakness [place]. Patient also reports she has been feeling nauseous with diarrhea for the past few days. She denies any fever, chills, abdominal pain or other medical complaints. PMD: None provided. Past Medical History Reviewed: Historical Data, Nursing Documentation, Vital Signs Vital Signs: Last Vital Signs Temp 98.5 F 04/07/18 15:02 Pulse 92 H 04/07/18 15:02 Resp 16 04/07/18 15:02 BP 118/73 04/07/18 15:02 Pulse Ox 100 04/07/18 15:02 - Medical History PMH: No Chronic Diseases Denies: Chronic Kidney Disease - Surgical History Surgical History: No Surg Hx - Family History Family History: States: Unknown Family Hx - Home Medications Home Medications: Ambulatory Orders Medication Instructions Recorded Multivitamin [Multivitamins] 1 tab PO DAILY 09/13/17 Metoclopramide HCl [Reglan] 10 mg PO BID PRN 5 Days tablet 09/15/17 Ondansetron [Zofran] 4 mg PO Q8H #10 tab 04/07/18 - Allergies Allergies/Adverse Reactions: Allergies Allergy/AdvReac Type Severity Reaction Status Date / Time No Known Allergies Allergy Verified 04/07/18 15:02 Review of Systems ROS Statement: Except As Marked, All Systems Reviewed And Found Negative Constitutional: Positive for: Weakness, Malaise (generalized ). Negative for: Fever, Chills Gastrointestinal: Positive for: Nausea, Diarrhea. Negative for: Abdominal Pain Physical Exam - Reviewed Nursing Documentation Reviewed: Yes Vital Signs Reviewed: Yes - Physical Exam Appears: Positive for: No Acute Distress Head Exam: Positive for: ATRAUMATIC, NORMAL INSPECTION, NORMOCEPHALIC Skin: Positive for: Normal Color, Warm, Dry Eye Exam: Positive for: Normal appearance, EOMI, PERRL ENT: Positive for: Other (mucous membranes dry) Neck: Positive for: Normal, Painless ROM, Supple Cardiovascular/Chest: Positive for: Regular Rate, Rhythm. Negative for: Murmur Respiratory: Positive for: Normal Breath Sounds. Negative for: Respiratory Distress Gastrointestinal/Abdominal: Positive for: Normal Exam, Soft. Negative for: Tenderness, Guarding, Rebound Back: Positive for: Normal Inspection. Negative for: L CVA Tenderness, R CVA Tenderness, Vertebral Tenderness Extremity: Positive for: Normal ROM (upper and lower extremities). Negative for: Deformity, Swelling Neurologic/Psych: Positive for: Alert, Oriented (x3). Negative for: Motor/Sensory Deficits ( no focal deficits) - Laboratory Results Result Diagrams: 04/07/18 15:57 04/07/18 15:57 - ECG O2 Sat by Pulse Oximetry: 100 (RA) Pulse Ox Interpretation: Normal Medical Decision Making Medical Decision Making: Time: 15:19 Initial Plan: --CMP --Urine --Urine dipstick --CBC w/ differential --Sodium Chloride 1,000 ml IV 250 mls/hr --Reevaluation Scribe Attestation: Documented by Steve Guerrero, acting as a scribe for Jann Hinojosa MD. Provider Scribe Attestation: All medical record entries made by the Scribe were at my direction and personally dictated by me. I have reviewed the chart and agree that the record accurately reflects my personal performance of the history, physical exam, medical decision making, and the department course for this patient. I have also personally directed, reviewed, and agree with the discharge instructions and disposition. Disposition - Clinical Impression Clinical Impression: Dehydration - Patient ED Disposition Is Patient to be Admitted: No Counseled Patient/Family Regarding: Studies Performed, Diagnosis, Need For Followup, Rx Given - Disposition Referrals: [facility] [Outside] Disposition: Routine/Home Disposition Time: 16:57 Condition: FAIR Prescriptions: Ondansetron [Zofran] 4 mg PO Q8H #10 tab Instructions: Dehydration, Adult (DC) Forms: [employer] (Georgian)
[2018-04-07 16:02] LABS: BASO % 0.4 % (0.0-2.0); EOS % 0.1 % (0.0-4.0); HEMOGLOBIN 10.1 g/dL (12.0-16.0); LYMPH # 1.2 K/uL (1.0-4.3); LYMPH % 11.5 % (20.0-40.0); MEAN CELL VOLUME 78.9 fl (81.0-99.0); MEAN CORPUSCULAR HEMOGLOBIN 25.5 pg (27.0-31.0); MEAN CORPUSCULAR HGB CONC 32.3 g/dL (33.0-37.0); MEAN PLATELET VOLUME 8.2 fl (7.2-11.7); MONO # 1.3 K/uL (0.0-0.8); MONO % 12.4 % (0.0-10.0); NEUT # 8.1 K/uL (1.8-7.0); NEUT % 75.6 % (50.0-75.0); RBC 3.95 Mil/uL (3.80-5.20); RED CELL DISTRIBUTION WIDTH 16.5 % (11.5-14.5); WHITE BLOOD COUNT 10.7 K/uL (4.8-10.8)
[2018-04-07 16:15] LABS: ALB/GLOB RATIO 1.2 (1.0-2.1); ALBUMIN 4.3 g/dL (3.5-5.0); ALT/SGPT 22 U/L (9-52); AST/SGOT 29 U/L (14-36); BLOOD UREA NITROGEN 9 mg/dl (7-17); CALCIUM 8.6 mg/dL (8.4-10.2); GFR NON-AFRICAN AMERICAN > 60
== END 2018-04-07 17:41 | disposition home or self-care (01) ==
LOC: H.ER 15:00
DX: E86.0 Dehydration (principal)
CPT/HCPCS: 80053; 81025; 85025; 99285; J7030

== ENCOUNTER 2018-06-07 08:58 | Emergency (ER) | payer OTHER ==
[2018-06-07 09:05] VITALS: BMI 26.2
[2018-06-07] MEDS ORDERED: Sodium Chloride 0.9% 1,000 ML IV STA (09:23)
[2018-06-07 10:24] LABS: BASO % 0.2 % (0.0-2.0); EOS % 0.4 % (0.0-4.0); LYMPH # 0.8 K/uL (1.0-4.3); LYMPH % 8.3 % (20.0-40.0); MEAN CELL VOLUME 78.6 fl (81.0-99.0); MEAN CORPUSCULAR HEMOGLOBIN 24.1 pg (27.0-31.0); MEAN CORPUSCULAR HGB CONC 30.7 g/dL (33.0-37.0); MEAN PLATELET VOLUME 8.8 fl (7.2-11.7); MONO # 0.9 K/uL (0.0-0.8); NEUT # 7.8 K/uL (1.8-7.0); NEUT % 82.1 % (50.0-75.0); PLATELET COUNT 320 K/uL (130-400); RBC 3.71 Mil/uL (3.80-5.20); RED CELL DISTRIBUTION WIDTH 17.6 % (11.5-14.5); WHITE BLOOD COUNT 9.6 K/uL (4.8-10.8)
--- NOTE | 2018-06-07 10:25 | ED PDOC ---
HPI: Neurologic - General Time Seen by Provider: 06/07/18 09:11 Chief Complaint (Nursing): Fever Chief Complaint (Provider): Numbness Source: patient Exam Limitations: no limitations - History of Present Illness Timing/Duration: other (this morning) Allergies/Adverse Reactions: Allergies No Known Allergies Allergy (Verified 04/07/18 15:02) Home Medications: Ambulatory Orders RX: Multivitamin [Multivitamins] 1 tab PO DAILY 09/13/17 Metoclopramide HCl [Reglan] 10 mg PO BID PRN 5 Days tablet 09/15/17 Ondansetron [Zofran] 4 mg PO Q8H #10 tab 04/07/18 Iron,Carb/Vit C/Vit B12/Folic [Iron 100 Plus Tablet] 1 each PO DAILY #30 tablet 06/07/18 Additional Complaint(s): 27 year old female presents to the ED with subjective numbness in all extremities with sudden onset this morning. Patient states she had a fever and has been taking Nyquil for symptom relief. She reports numbness started in both feet bilaterally and spread to the arms before she came in. Now numbness is worse in the right arm and right leg. Patient states she had a similar episode 1 year ago and had a full workup done and followed up with a neurologist. She states she was diagnosed with "temporary ischemic attack" (patient most likely means transient ischemic attack). Patient followed up with a neurologist and was given medications for 2 weeks. Patient admits she became lazy and stopped taking medications and has no episode since. When patient was asked if she had a CT scan, she states she is not sure. Denies any recent illness or sick contacts. PMD: none Past Medical History Reviewed: Historical Data, Nursing Documentation, Vital Signs Vital Signs: Last Vital Signs Temp 99.6 F 06/07/18 09:48 Pulse 101 H 06/07/18 09:05 Resp 17 06/07/18 09:05 BP 113/73 06/07/18 09:05 Pulse Ox 98 06/07/18 09:05 - Medical History PMH: Anemia, TIA Denies: Chronic Kidney Disease - Surgical History Surgical History: No Surg Hx - Family History Family History: States: Unknown Family Hx - Home Medications Home Medications: Ambulatory Orders Medication Instructions Recorded RX: Multivitamin [Multivitamins] 1 tab PO DAILY 09/13/17 Metoclopramide HCl [Reglan] 10 mg PO BID PRN 5 Days tablet 09/15/17 Ondansetron [Zofran] 4 mg PO Q8H #10 tab 04/07/18 Iron,Carb/Vit C/Vit B12/Folic 1 each PO DAILY #30 tablet 06/07/18 [Iron 100 Plus Tablet] - Allergies Allergies/Adverse Reactions: Allergies Allergy/AdvReac Type Severity Reaction Status Date / Time No Known Allergies Allergy Verified 04/07/18 15:02 Review of Systems ROS Statement: Except As Marked, All Systems Reviewed And Found Negative Constitutional: Positive for: Fever Neurological: Positive for: Numbness (to all extremities) Physical Exam - Reviewed Nursing Documentation Reviewed: Yes Vital Signs Reviewed: Yes - Physical Exam Appears: Positive for: Non-toxic, No Acute Distress Head Exam: Positive for: ATRAUMATIC, NORMOCEPHALIC Skin: Positive for: Normal Color, Warm, Dry Eye Exam: Positive for: Normal appearance Neck: Positive for: Normal, Painless ROM Cardiovascular/Chest: Positive for: Regular Rate, Rhythm Respiratory: Positive for: Normal Breath Sounds. Negative for: Wheezing, Respiratory Distress Extremity: Positive for: Other (Symmetric strength in all extremities; 2 point discrimination in all extremities) Neurologic/Psych: Positive for: Alert, pipelayer II-XII (intact), Oriented, Other (no objective numbness; NIH stroke scale was 0) - Laboratory Results Result Diagrams: 06/07/18 09:30 06/07/18 09:30 - ECG O2 Sat by Pulse Oximetry: 98 (RA) Pulse Ox Interpretation: Normal Medical Decision Making Medical Decision Making: Initial Impression: Workup for subjective numbness with fever Initial Plan: Tylenol for fever, basic labs, and IV fluids ordered. Will reassess patient. Will consider imaging if symptoms not improved. 11:40 Patient with symptomatic anemia with a hemoglobin of 9. Further discussion with patient revealed she has heavy menstruation. Her last period was last week which patient states was not heavy as usual. She denies any blood in stool. Patient states she looks more pale than normal. On further exam patient appears to be conjunctival pallor. Patient consented to a blood transfusion and will be admitted to telemetry. 12:[address] Swartz who is refusing to admit/transfuse the patient. Per Dr. Swartz, patient's symptoms have been present prior despite conflicting inf ormation from the patient. Chart review shows that last time the patient's hemoglobin dropped below 10, she was also symptomatic. Discussed follow up with clinic with the patient for penitentiary monitoring and treatment of anemia. Pt with improved vitals. Discussed the risks of anemia such as SOB, weakness, dizziness, with the patient and the possible need for transfusion in the future. Pt to return to any emergency department if symptoms worsen. Scribe Attestation: Documented by Chaz Ibarra acting as a scribe for Lena Black MD. Provider Scribe Attestation: All medical record entries made by the Scribe were at my direction and personally dictated by me. I have reviewed the chart and agree that the record accurately reflects my personal performance of the history, physical exam, medical decision making, and the department course for this patient. I have also personally directed, reviewed, and agree with the discharge instructions and disposition. Disposition - Clinical Impression Clinical Impression: Symptomatic anemia, Microcytic anemia - Disposition Referrals: [facility] [Outside] Disposition Time: 12:30 Condition: STABLE Prescriptions: Iron,Carb/Vit C/Vit B12/Folic [Iron 100 Plus Tablet] 1 each PO DAILY #30 tablet Instructions: Anemia Caused by Low Iron, Adult (DC) Forms: [employer] (Citizen Of [place]) Print Language: URDU
[2018-06-07 10:28] LABS: BLOOD UREA NITROGEN 10 mg/dl (7-17); CALCIUM 8.9 mg/dL (8.4-10.2); GFR NON-AFRICAN AMERICAN > 60
[2018-06-07 12:20] VITALS: RESP 18
--- NOTE | 2018-06-07 12:22 | CP.PCM.CON ---
History of Present Illness - History of Present Illness History of Present Illness: 27 yo female with no significant PMH came in because of tingling sensation of hands and legs starting this morning. Patient was previously seen in 09/14/17 with the same complaint and placed on observation to rule out CVA which was rule d out. On this admission her Hgb was 10.2 which dropped down to 8.7. There was no report of active bleeding and patient was discharged in stable condition the next day and advised to follow up in the [facility] for anemia work up and management. Patient admitted to monthly heavy menstrual bleeding. Patient never received blood transfusion even with a Hgb of 8.7. With a Hgb of 9.0 patient do not need blood transfusion and do not warrant admission. Past Patient History - Infectious Disease Hx of Infectious Diseases: None - Tetanus Immunizations Tetanus Immunization: Unknown - Past Medical History & Family History Past Medical History?: No - Past Social History Smoking Status: Never Smoked - CARDIAC Hx Cardiac Disorders: No - PULMONARY Hx Respiratory Disorders: No - NEUROLOGICAL Hx Transient Ischemic Attacks (TIA): Yes - HEENT Hx HEENT Problems: No Other/Comment: TMJ - RENAL Hx Chronic Kidney Disease: No - ENDOCRINE/METABOLIC Hx Endocrine Disorders: No - HEMATOLOGICAL/ONCOLOGICAL Hx Anemia: Yes - INTEGUMENTARY Hx Dermatological Problems: No - MUSCULOSKELETAL/RHEUMATOLOGICAL Hx Musculoskeletal Disorders: No - GASTROINTESTINAL Hx Gastrointestinal Disorders: No - GENITOURINARY/GYNECOLOGICAL Hx Genitourinary Disorders: No - PSYCHIATRIC Hx Psychophysiologic Disorder: No Hx Substance Use: No - SURGICAL HISTORY Hx Surgeries: Yes Hx Section: Yes - ANESTHESIA Hx Anesthesia: Yes Hx Anesthesia Reactions: No Meds Allergies/Adverse Reactions: Allergies Allergy/AdvReac Type Severity Reaction Status Date / Time No Known Allergies Allergy Verified 04/07/18 15:02 Physical Exam - Constitutional Appears: No Acute Distress - Head Exam Head Exam: ATRAUMATIC - Eye Exam Eye Exam: Normal appearance - ENT Exam ENT Exam: Mucous Membranes Moist - Respiratory Exam Respiratory Exam: absent: Rales, Rhonchi, Wheezes, Respiratory Distress - Cardiovascular Exam Cardiovascular Exam: REGULAR RHYTHM, +S1, +S2 - GI/Abdominal Exam GI & Abdominal Exam: Soft. absent: Tenderness - Neurological Exam Neurological exam: Alert, Oriented x3 - Skin Skin Exam: Normal Color Results - Vital Signs Recent Vital Signs: Last Vital Signs Temp 99.6 F 06/07/18 09:48 Pulse 101 H 06/07/18 09:05 Resp 17 06/07/18 09:05 BP 113/73 06/07/18 09:05 Pulse Ox 98 06/07/18 12:06 - Labs Result Diagrams: 06/07/18 09:30 06/07/18 09:30 Labs: Laboratory Results - last 24 hr 06/07/18 06/07/18 06/07/18 09:30 09:30 09:30 WBC 9.6 RBC 3.71 L Hgb 9.0 L Hct 29.2 L MCV 78.6 L MCH 24.1 L MCHC 30.7 L RDW 17.6 H Plt Count 320 MPV 8.8 Neut % (Auto) 82.1 H Lymph % (Auto) 8.3 L [place] % (Auto) 9.0 Eos % (Auto) 0.4 Baso % (Auto) 0.2 Neut # (Auto) 7.8 H Lymph # (Auto) 0.8 L [place] # (Auto) 0.9 H Eos # (Auto) 0.0 Baso # (Auto) 0.0 Sodium 139 Potassium 3.8 Chloride 104 Carbon Dioxide 24 Anion Gap 15 BUN 10 Creatinine 0.7 Est GFR ( Amer) > 60 Est GFR (Non-Af Amer) > 60 Random Glucose 103 Calcium 8.9 Influenza Typ A,B (EIA) Negative for flu a/b Assessment & Plan (1) Chronic anemia Status: Chronic Comment: chronic anemia from chronic blood loss from menstruation. patient do not need admission or blood transfusion. please sent patient to [facility] for follow up
[2018-06-07 12:46] LABS: LYMPHOCYTE 9 % (20-50); MONOCYTE 4 % (0-10); NEUTROPHIL 87 % (42-75); PLATELET ESTIMATE NORMAL (NORMAL); TOTAL CELLS COUNTED 100
[2018-06-07 12:47] LABS: ANISOCYTOSIS SLIGHT
[2018-06-07 12:48] LABS: HYPOCHROMIC MODERATE; OVALOCYTES SLIGHT; SCHISTOCYTES SLIGHT; TEARDROP CELLS SLIGHT
[2018-06-07 13:55] VITALS: BP 101/54; PULSE 94; TEMP 98.7
[2018-06-08 17:02] VITALS: O2SAT 98
== END 2018-06-07 13:40 | disposition home or self-care (01) ==
LOC: H.ER 08:58
DX: D64.9 Anemia, unspecified (principal); D50.9 Iron deficiency anemia, unspecified; Z86.73 Personal history of transient ischemic attack (TIA), and cerebral infarction without residual deficits
CPT/HCPCS: 80048; 85025; 87804; 99284; J7030

== ENCOUNTER 2018-10-12 14:18 | Emergency (ER) | payer OTHER ==
[2018-10-12 14:19] VITALS: BMI 26.2
[2018-10-12 14:31] VITALS: O2SAT 100
[2018-10-12] MEDS ORDERED: Sodium Chloride 0.9% 1,000 ML IV STA (14:57)
--- NOTE | 2018-10-12 15:01 | ED PDOC ---
Lower Extremity Pain/Injury Time Seen by Provider: 10/12/18 14:33 Chief Complaint (Nursing): Weakness/Neurological Deficit Chief Complaint (Provider): leg tingles History Per: Patient History/Exam Limitations: no limitations Onset/Duration Of Symptoms: Days (today 1am) Current Symptoms Are (Timing): Still Present Additional Complaint(s): Pt. with left toe radiating up to knee tingles/pins/needles feeling. No numbness, weakness, pain. No injury. No long distance travel, dyspnea, chest pain, fever, cough, hormone use. No headaches dizziness. No upper extremity, face, or left lower extremity issues. Past Medical History Reviewed: Nursing Documentation, Vital Signs Vital Signs: Last Vital Signs Temp 97.6 F 10/12/18 14:28 Pulse 70 10/12/18 14:28 Resp 18 10/12/18 14:28 BP 103/62 10/12/18 14:28 Pulse Ox 100 10/12/18 14:28 Primary Care Provider: DoctorLaila - Medical History PMH: Anemia, TIA Denies: Chronic Kidney Disease Other PMH: left side numbness hx - Surgical History Surgical History: No Surg Hx - Family History Family History: States: Unknown Family Hx - Living Arrangements Living Arrangements: With Family - Social History Alcohol: None Drugs: Denies - Home Medications Home Medications: Ambulatory Orders Medication Instructions Recorded Multivitamin [Multivitamins] 1 tab PO DAILY 09/13/17 Metoclopramide HCl [Reglan] 10 mg PO BID PRN 5 Days tablet 09/15/17 Ondansetron [Zofran] 4 mg PO Q8H #10 tab 04/07/18 Iron,Carb/Vit C/Vit B12/Folic 1 each PO DAILY #30 tablet 06/07/18 [Iron 100 Plus Tablet] - Allergies Allergies/Adverse Reactions: Allergies Allergy/AdvReac Type Severity Reaction Status Date / Time No Known Allergies Allergy Verified 10/12/18 14:28 Review of Systems ROS Statement: Except As Marked, All Systems Reviewed And Found Negative Neurological: Negative for: Numbness Physical Exam - Reviewed Nursing Documentation Reviewed: Yes - Physical Exam Appears: Positive for: Non-toxic, No Acute Distress Head Exam: Positive for: ATRAUMATIC, NORMAL INSPECTION, NORMOCEPHALIC Skin: Positive for: Normal Color, Warm, DRY Eye Exam: Positive for: EOMI, Normal appearance, PERRL ENT: Positive for: Normal ENT Inspection Neck: Positive for: Normal, Painless ROM Cardiovascular/Chest: Positive for: Regular Rate, Rhythm Respiratory: Positive for: CNT, Normal Breath Sounds Pulses-Dorsalis Pedis (L): 2+ Pulses-Dorsalis Pedis (R): 2+ Pulses-Post. Tibialis (L): 2+ Pulses-Post. Tibialis (R): 2+ Gastrointestinal/Abdominal: Positive for: Normal Exam, Soft. Negative for: Tenderness Back: Positive for: Normal Inspection. Negative for: L CVA Tenderness, R CVA Tenderness Extremity: Positive for: Normal ROM, Other (no swelling, erythema, or induration.). Negative for: Tenderness, Pedal Edema, Calf Tenderness, De formity, Swelling Neurological/Psych: Positive for: Awake, Alert, Normal Tone, Symmetric/Intact Strength, mat man II-XII. Negative for: Motor/Sensory Deficits, Facial Droop - Laboratory Results Result Diagrams: 10/12/18 15:05 10/12/18 15:05 Interpretation Of Abn Labs: no acute - ECG O2 Sat by Pulse Oximetry: 100 Pulse Ox Interpretation: Normal - CT Scan/US US Other Rad Studies (CT/US): Read By Radiologist Other Rad Interpretation: no acute - Progress ED Course And Treament: 1500: Chart reviewed. In Er multiple times for similar and other neurological issues like headache, numbness, etc. Pt. has had work ups and admit. Dr. Perez has seen pt. and cleared previously. No dx of tia or stroke made. 1631: Stable. AAOx3. Pain free. Tolerated PO. Fu with pcp. Likely paresthesias. Disposition - Clinical Impression Clinical Impression: Paresthesia - Patient ED Disposition Is Patient to be Admitted: No Counseled Patient/Family Regarding: Studies Performed, Diagnosis, Need For Followup - Disposition Referrals: Adria Perez MD [Medical Doctor] - 10/13/18 Disposition: Routine/Home Disposition Time: 16:32 Condition: STABLE Additional Instructions: Return if not better in 3 days. Instructions: Paresthesias (DC) Forms: [employer] (Italian), [facility] ED School/Work Excuse
[2018-10-12 15:15] LABS: BASO % 1.1 % (0.0-2.0); EOS # 0.1 K/uL (0.0-0.7); EOS % 2.7 % (0.0-4.0); HEMOGLOBIN 10.1 g/dL (12.0-16.0); LYMPH # 1.7 K/uL (1.0-4.3); LYMPH % 37.6 % (20.0-40.0); MEAN CELL VOLUME 76.5 fl (81.0-99.0); MEAN CORPUSCULAR HGB CONC 31.4 g/dL (33.0-37.0); MEAN PLATELET VOLUME 8.7 fl (7.2-11.7); MONO # 0.4 K/uL (0.0-0.8); MONO % 8.6 % (0.0-10.0); NEUT # 2.2 K/uL (1.8-7.0); NRBC % 0.1 % (0.0-0.0); RBC 4.23 Mil/uL (3.80-5.20); RED CELL DISTRIBUTION WIDTH 18.2 % (11.5-14.5); WHITE BLOOD COUNT 4.4 K/uL (4.8-10.8)
[2018-10-12 15:22] LABS: ALB/GLOB RATIO 1.4 (1.0-2.1); ALBUMIN 4.5 g/dL (3.5-5.0); ALT/SGPT 20 U/L (9-52); AST/SGOT 26 U/L (14-36); BLOOD UREA NITROGEN 12 mg/dl (7-17); GFR NON-AFRICAN AMERICAN > 60
--- NOTE | 2018-10-12 16:44 | US ---
Date of service: 10/12/2018 PROCEDURE: Right lower extremity venous duplex Doppler. HISTORY: r/o dvt COMPARISON: None available. TECHNIQUE: Common and superficial femoral, popliteal and posterior tibial veins were evaluated. Flow was assessed with color Doppler, compressibility, assessment of phasic flow and augmentation response. FINDINGS: COMMON FEMORAL VEIN: Unremarkable. SUPERFICIAL FEMORAL VEIN: Unremarkable. POPLITEAL VEIN: Unremarkable. POSTERIOR TIBIAL VEIN: Unremarkable. OTHER FINDINGS: None. IMPRESSION: No sonographic evidence of deep venous thrombosis in the right lower extremity.
[2018-10-12 16:46] VITALS: BP 112/68; PULSE 69; RESP 16; TEMP 98.3
== END 2018-10-12 16:51 | disposition home or self-care (01) ==
LOC: H.ER 14:18
DX: R20.0 Anesthesia of skin (principal)
CPT/HCPCS: 80053; 81025; 83735; 84100; 85025; 93971; 96374; 99285; J1885; J7030

== ENCOUNTER 2018-10-14 18:53 | Emergency (ER) | payer OTHER ==
[2018-10-14 18:54] VITALS: BMI 26.2
[2018-10-14 19:06] VITALS: RESP 16; O2SAT 98
[2018-10-14 21:34] VITALS: BP 108/67; PULSE 90; TEMP 98.4
--- NOTE | 2018-10-14 21:43 | ED PDOC ---
Lower Extremity Pain/Injury Time Seen by Provider: 10/14/18 19:23 Chief Complaint (Nursing): Lower Extremity Problem/Injury Chief Complaint (Provider): Lower Extremity Problem/Injury History Per: Patient History/Exam Limitations: no limitations Onset/Duration Of Symptoms: Days (x 5) Current Symptoms Are (Timing): Still Present Additional Complaint(s): 27 year old male with no significant medical history presents to the ED with bilateral lower extremity paresthesias for five days. Patient was seen in this ED on 10/09 for similar complaints that began that day. It was recommended she follow up with an outpatient neurologist with unremarkable blood work and a lower extremity venous duplex. Patient states she was unable to get an appointment with Dr. Perez until 11/04. She was advised to come to the ED if her symptoms persisted after 3 days or worsened. The symptoms were located mostly on her right two days ago and today spread to her left. Of note, she was admitted in 09/2017 for similar complaints with neurology workup that was negative for CVA, TIA and other neurological pathology. Patient states that there is increased stress in her life recently but would just like to escape problems. Denies fecal or urinary incontinence, weakness, gait instability, fever, chills, SI, HI and hallucinations. PMD: none provided Past Medical History Reviewed: Historical Data, Nursing Documentation, Vital Signs Vital Signs: Last Vital Signs Temp 98.4 F 10/14/18 21:32 Pulse 90 10/14/18 21:32 Resp 16 10/14/18 21:32 BP 108/67 10/14/18 21:32 Pulse Ox 98 10/14/18 21:32 Primary Care Provider: FAMILY PROVIDER,NO - Medical History PMH: Anemia, TIA Denies: Chronic Kidney Disease - Surgical History Surgical History: No Surg Hx - Family History Family History: States: Unknown Family Hx - Home Medications Home Medications: Ambulatory Orders Medication Instructions Recorded Multivitamin [Multivitamins] 1 tab PO DAILY 09/13/17 Metoclopramide HCl [Reglan] 10 mg PO BID PRN 5 Days tablet 09/15/17 Ondansetron [Zofran] 4 mg PO Q8H #10 tab 04/07/18 Iron,Carb/Vit C/Vit B12/Folic 1 each PO DAILY #30 tablet 06/07/18 [Iron 100 Plus Tablet] Ibuprofen [Motrin Tab] 600 mg PO Q6 PRN 7 Days tab 10/14/18 - Allergies Allergies/Adverse Reactions: Allergies Allergy/AdvReac Type Severity Reaction Status Date / Time No Known Allergies Allergy Verified 10/12/18 14:28 Review of Systems ROS Statement: Except As Marked, All Systems Reviewed And Found Negative Constitutional: Negative for: Fever, Chills Neurological: Positive for: Numbness. Negative for: Weakness, Incoordination, Dizziness Psych: Negative for: Suicidal ideation Physical Exam - Reviewed Nursing Documentation Reviewed: Yes Vital Signs Reviewed: Yes - Physical Exam Appears: Positive for: Well, No Acute Distress Pulses-Dorsalis Pedis (L): 2+ Pulses-Dorsalis Pedis (R): 2+ Back: Positive for: Normal Inspection (normal ROM with flexion and extension) Extremity: Positive for: Normal ROM (normal ROM including flexion and extension at hip, knees, and ankle bilateral ), Capillary Refill (< 2 seconds bilaterally), Other (sensation intact to light touch bilaterally). Negative for: Swelling (erythema, swelling, ecchymosis ) Neurological/Psych: Positive for: Awake, Alert, Normal Tone, Symmetric/Intact Strength, Oriented (x 3), Mood/Affect (appropriate affect), Gait (steady). Negative for: Motor/Sensory Deficits - ECG O2 Sat by Pulse Oximetry: 98 (RA) Medical Decision Making Medical Decision Makin:45 MDM: advised that given lack of concerning symptoms, such as incontinence, fever, chills and leg weakness, patient likely with neurological cause of paresthesias that require further workup as an outpatient. Advised to keep appointment with Dr. Perez. No medications given due to questionable diagnosis. Patient is aware and agrees with plan. Stable for discharge. Scribe Attestation: Documented by Alysa Salgado, acting as a scribe for María Elena Tirado PA-C Provider Scribe Attestation: All medical record entries made by the Scribe were at my direction and personally dictated by me. I have reviewed the chart and agree that the record accurately reflects my personal performance of the history, physical exam, medical decision making, and the department course for this patient. I have also personally directed, reviewed, and agree with the discharge instructions and disposition. Disposition - Clinical Impression Clinical Impression: Paresthesia of both feet - Patient ED Disposition Is Patient to be Admitted: No - Disposition Referrals: Adria Perez MD [Medical Doctor] - Disposition: Routine/Home Disposition Time: 20:45 Condition: STABLE Additional Instructions: Follow up with neurologist as scheduled. Avoid tight fitting clothes and elevate legs. Return to ER if you are unable to hold your urine or feces or have leg weakness. Take Tylenol or Ibuprofen for pain. Prescriptions: Ibuprofen [Motrin Tab] 600 mg PO Q6 PRN 7 Days tab PRN Reason: Pain, Moderate (4-7) Instructions: Paresthesias (DC) Forms: [facility] ([place]an) Print Language: GE[place]GI[place]
== END 2018-10-14 21:30 | disposition home or self-care (01) ==
LOC: H.ER 18:53
DX: R20.2 Paresthesia of skin (principal); Z86.73 Personal history of transient ischemic attack (TIA), and cerebral infarction without residual deficits